=== PATIENT | male | born 1985 | race Caucasian/White ===

== ENCOUNTER 2021-09-02 09:14 | Outpatient (CLI) | payer OTHER ==
--- NOTE | 2021-09-02 09:57 | XRay Report ---
CHEST 2 VIEWS INDICATION / CLINICAL INFORMATION: RULE OUT ACTIVE TB. COMPARISON: None available. FINDINGS: SUPPORT DEVICES: None. HEART / MEDIASTINUM: No significant abnormality. LUNGS / PLEURA: No significant pulmonary or pleural abnormality. No pneumothorax. ADDITIONAL FINDINGS: No significant additional findings. IMPRESSION: 1. No acute findings. Signer Name: Samuel Boateng MD Signed: 09/02/2021 9:53 AM Workstation Name: [email or web address]
== END 2021-09-02 09:15 | disposition home or self-care (01) ==
LOC: XRAY 09:14
DX: A15.9 Respiratory tuberculosis unspecified (principal)
CPT/HCPCS: 71046